=== PATIENT | female | born 1965 | race Caucasian/White ===

== ENCOUNTER 2018-10-25 18:53 | Emergency (ER) | payer MEDICARE, MEDICAID, SELFPAY ==
[2018-10-25 19:00] VITALS: BP 145/92; PULSE 85; RESP 18; TEMP 36.3; O2SAT 98; BMI 42.5
--- NOTE | 2018-10-25 19:09 | ED.DENTAL ---
HPI - Dental/Oral <Ludivina Resendez PA-C - Last Filed: 10/25/18 21:46> General Chief complaint: Dental/Oral Stated complaint: mouth bleeding/baby asa/today Time Seen by Provider: 10/25/18 19:08 Source: patient Mode of arrival: ambulatory Limitations: no limitations History of Present Illness HPI Narrative: This 53-year-old female had 6 teeth pulled today, states 5 or broken already and her molar was loose so that was pulled as well. She was given antibiotic to start on for infection. She states that she left the dentist about 130 and had oozing, and this has continued to bleed without stopping. She is not feeling nauseated, thinks she swallowed a minimal amount of blood, denies other new complaints. Related Data Home Medications Medication Instructions Recorded Confirmed aspirin 81 mg PO QDAY #0 09/14/17 atorvastatin [Lipitor] 10 mg PO HS #0 09/14/17 buspirone #0 09/14/17 cholecalciferol (vitamin D3) #0 09/14/17 coenzyme Q10 [Co Q-10] 100 mg PO #0 09/14/17 glatiramer [Copaxone] 40 mg #0 09/14/17 levothyroxine [Tirosint] 88 mcg PO #0 09/14/17 lisinopril 5 mg PO QDAY #0 09/14/17 magnesium oxide 400 mg PO #0 09/14/17 vitamin B complex [B 1 tab PO QDAY #0 09/14/17 Complex-Vitamin B12] Allergies Allergy/AdvReac Type Severity Reaction Status Date / Time Penicillins [PENICILLINS] Allergy Mild rash Unverified 09/23/17 13:10 morphine [MORPHINE] Allergy Unknown itchy, Unverified 09/23/17 13:10 flushed Review of Systems <Ludivina Resendez PA-C - Last Filed: 10/25/18 21:46> Review of Systems ROS Unobtainable: All systems reviewed & are unremarkable except as noted in HPI and below PFSH <Ludivina Resendez PA-C - Last Filed: 10/25/18 21:46> Medical History (Updated 10/25/18 @ 21:19 by Ludivina Resendez PA-C) Brain aneurysm (Chronic) Multiple sclerosis (Chronic) No pertinent family history (Chronic) Surgical History (Updated 10/25/18 @ 19:36 by Ludivina Resendez PA-C) No pertinent past surgical history (Chronic) Social History Smoking Status: Former smoker Social History Smoking Status: Former smoker Exam <Ludivina Resendez PA-C - Last Filed: 10/25/18 21:46> Narrative Exam Narrative: GENERAL APPEARANCE: Patient sitting comfortably, in no distress. HEENT: There is dark and partially clotted blood oozing from the right side molar extraction sites both upper and lower no active bleeding at other extraction site LUNGS: Clear to auscultation bilaterally. HEART: Rate and rhythm regular without murmur, normal S1 and S2, no S3 or S4. Initial Vital Signs Initial Vital Signs: Vital Signs Temperature 97.4 F L 10/25/18 19:00 Pulse Rate 85 10/25/18 19:00 Respiratory Rate 18 10/25/18 19:00 Blood Pressure 145/92 H 10/25/18 19:00 Pulse Oximetry 98 10/25/18 19:00 <Jack Mishra MD - Last Filed: 10/26/18 05:04> Initial Vital Signs Initial Vital Signs: Vital Signs Temperature 97.4 F L 10/25/18 19:00 Pulse Rate 85 10/25/18 19:00 Respiratory Rate 18 10/25/18 19:00 Blood Pressure 145/92 H 10/25/18 19:00 Pulse Oximetry 98 10/25/18 19:00 Course <Ludivina Resendez PA-C - Last Filed: 10/25/18 21:46> Additional Information: Cotton pledgets were placed on right side bleeding extraction sites for additional pressure. Bleeding resolved and patient was able to eat applesauce without difficulty prior to discharge Vital Signs - 8 hr 10/25/18 21:27 Pulse Rate 68 Respiratory Rate 16 Blood Pressure 115/67 Pulse Oximetry 96 <Jack Mishra MD - Last Filed: 10/26/18 05:04> Vital Signs - 8 hr 10/25/18 21:27 Pulse Rate 68 Respiratory Rate 16 Blood Pressure 115/67 Pulse Oximetry 96 Discharge Plan Departure Patient Disposition: Home Clinical Impression: Surgical wound hemorrhage after dental procedure Discharge Date/Time: 10/25/18 21:28 Interventions: ED Discharge Assessment Last Done: 10/25/18 21:27 Instructions: DI for Post-Surgical Bleeding Activity Restrictions/Additional Instructions: If you start to have some oozing again tonight, you can use the pledgets I gave you since those seemed to work well. For heavy bleeding or bleeding that will not stop again, please return to the ED. You can have very soft foods or liquids tonight likely applesauce you had here, nothing too hot. Please check in with your dentist tomorrow and let them know you were seen for bleeding here as they may want you to follow up Prescriptions: No Action atorvastatin [Lipitor] 10 MG tablet 10 mg PO HS Qty: 0 RF: 0 lisinopril 5 MG tablet 5 mg PO QDAY Qty: 0 RF: 0 levothyroxine [Tirosint] 88 MCG capsule 88 mcg PO Qty: 0 RF: 0 magnesium oxide 400 MG tablet 400 mg PO Qty: 0 RF: 0 buspirone 10 MG tablet Qty: 0 RF: 0 aspirin 81 MG tablet,chewable 81 mg PO QDAY Qty: 0 RF: 0 vitamin B complex [B Complex-Vitamin B12] 1 EACH tablet 1 tab PO QDAY Qty: 0 RF: 0 cholecalciferol (vitamin D3) 5,000 UNIT capsule Qty: 0 RF: 0 coenzyme Q10 [Co Q-10] 100 MG capsule 100 mg PO Qty: 0 RF: 0 glatiramer [Copaxone] 40 MG/1 ML syringe 40 mg Qty: 0 RF: 0 Referrals: ePlon Stallings MD [Primary Care Provider] - <Jack Mishra MD - Last Filed: 10/26/18 05:04> Cosign ED Attending Daijaature Attestation: I was present in the ER at the time this patient's care. I was available for consultation or to see the patient directly if requested. I agree with the patient's evaluation, assessment and treatment plan.
[2018-10-25 20:25] VITALS: BP 125/71; PULSE 71; RESP 17; O2SAT 98
--- NOTE | 2018-10-25 21:00 | PC.NURSE ---
patient given applesauce and pudding to see if she can tolerate soft food without starting the bleeding back. provider aware and no new orders at this time.
[2018-10-25 21:27] VITALS: BP 115/67; PULSE 68; RESP 16; O2SAT 96
== END 2018-10-25 21:28 | disposition home or self-care (01) ==
PROVIDERS: Emergency Provider Internal Medicine; Family Provider Internal Medicine; PCP Internal Medicine
DX: K91.840 Postprocedural hemorrhage of a digestive system organ or structure following a digestive system procedure (principal); R11.0 Nausea
CPT/HCPCS: 99282

== ENCOUNTER → 2019-03-04 09:11 | Outpatient (CLI) | payer MEDICARE, MEDICAID, SELFPAY ==
--- NOTE | 2019-03-04 | DI.CT.S_ITS ---
PROCEDURE: CT ABDOMEN PELVIS WO/W CON INDICATIONS: GROSS HEMATURIA TECHNIQUE: Optional 5 mm thick noncontrast images acquired from the diaphragm to the symphysis pubis. After the administration of intravenous contrast, 5 mm thick images acquired from the diaphragm to the symphysis pubis after a 10-minute delay. 2 mm thick coronal and sagittal reformats were then performed of the kidneys and ureters. For radiation dose reduction, the following was used: automated exposure control, adjustment of mA and/or kV according to patient size. COMPARISON: None. FINDINGS: Image quality: Excellent. Lung bases: Lung bases are clear. Heart size is normal. Urinary system: Both kidneys are normal in size, without hydronephrosis or nephrolithiasis on pre-contrast images. No perinephric fat stranding. There is normal bilateral renal enhancement. Renal calyces appear normal in morphology when filled with contrast. Opacified portions of both ureters demonstrate normal caliber. Bladder wall thickness is normal. No calcified bladder stones. Other solid organs: Liver is normal in size and enhancement. Gallbladder wall is not thickened. Biliary system is non dilated. Pancreas enhances normally. Spleen is normal in size and enhancement. Generalized thickening can be seen of the adrenal glands, yet without focal adrenal nodules. Peritoneum and bowel: Bowel loops demonstrate normal wall thickness and caliber. No free fluid or air. Incidental note is made of a normal-appearing appendix. Mild diverticulosis is seen, without findings of active diverticulitis. Nodes and vessels: No retroperitoneal or mesenteric adenopathy by size criteria. Aorta and inferior vena cava are normal in size. Abdominal wall: No ventral hernias. Pelvis: No pathologic free pelvic fluid. No inguinal hernias or adenopathy. Mild cystic changes can be seen in the ovaries, which is within normal, physiologic limits Bones: No suspicious bony lesions. No vertebral body compression fractures. Mild S-shaped scoliotic curvature is seen. Age-appropriate bony degenerative changes are seen. IMPRESSION: A cause of hematuria is not identified. Specifically, no stones, renal masses, ureteral abnormalities, or bladder masses are seen. Incidental note is made of: Normal appendix Physiologic cystic changes of the ovaries Diverticulosis is seen, without findings of active diverticulitis. Dictated by: Jose De Jesus Chilel M.D. on 03/04/2019 at 10:50 Approved by: Jose De Jesus Chilel M.D. on 03/04/2019 at 10:53
== END ==
PROVIDERS: Family Provider Internal Medicine; PCP Internal Medicine; Visit Provider Urology
DX: R31.0 Gross hematuria (principal); K57.90 Diverticulosis of intestine, part unspecified, without perforation or abscess without bleeding
CPT/HCPCS: 74178; Q9967